=== PATIENT | male | born 1990 | race Caucasian/White ===

== ENCOUNTER 2020-11-24 17:02 | Observation (INO) | payer SELFPAY ==
[~2020-11-24] VITALS: Ht 182.9 cm; Wt 81.8 kg
[2020-11-24 17:26] VITALS: Ht 182.9 cm; Wt 81.8 kg
[2020-11-24 17:26] LABS: BASOPHILS 0.3 % (0-2); EOSINOPHILS 1.3 % (0-7); HEMATOCRIT 41.2 % (42.0-54.0); HEMOGLOBIN 14.2 g/dL (13.5-17.5); IMMATURE GRANULOCYTES 0.3 % (0-5); LYMPHOCYTE ABS# 2.25 10x3/uL (1.32-3.57); LYMPHOCYTES 21.6 % (15-50); MCH 31.7 pg (26.0-34.0); MCHC 34.5 g/dL (31.0-37.0); MEAN PLATELET VOLUME 10.1 fL (7.4-10.4); MONOCYTES 4.2 % (2-11); NEUTROPHIL ABS# 7.52 10x3/uL (1.78-5.38); NEUTROPHILS 72.3 % (40-80); PLATELET COUNT 232 10x3/uL (130-400); RBC 4.48 10x6/uL (4.20-6.10); WBC 10.4 10x3/uL (4.8-10.8)
--- NOTE | 2020-11-24 17:32 | NUR ---
AWAITING NARCAN DRIP FROM PHARMACY. PATIENT RESPONDING TO NARCAN IVP, NOW AROUSES TO VERBAL STIMULUS, PUPIL SIZE FROM 1MM TO 2MM, SPEECH LESS SLUGGISH.
[2020-11-24 17:33] LABS: CALC OSMOLALITY 273 mosm/kg (275-300); CALCIUM 8.1 mg/dL (8.5-10.1); CARBON DIOXIDE 26.4 mmol/L (21.0-32.0); CHLORIDE - SERUM 101 mmol/L (98-107); CREATININE - SERUM 1.1 mg/dL (0.6-1.3); GLUCOSE 150 mg/dL (74-106); POTASSIUM - SERUM 3.3 mmol/L (3.5-5.1); SODIUM 136 mmol/L (136-145); UREA NITROGEN 9 mg/dL (7-18); eGFR NON AFRICAN AMERICAN 84 mL/min (90-120)
[2020-11-24 17:39] LABS: ALBUMIN 4.6 g/dL (3.4-5.0); ALKALINE PHOSPHATASE 68 U/L (30-120); ALT (SGPT) 29 U/L (10-68); BILIRUBIN - TOTAL 0.58 mg/dL (0.2-1.3); MAGNESIUM - SERUM 1.9 mg/dL (1.8-2.4); PROTEIN - SERUM 7.4 g/dL (6.4-8.2)
--- NOTE | 2020-11-24 17:52 | NUR ---
SPOKE TO MANE PUENTE, MOTHER, WITH PATIENT PERMISSION. STATES THAT THE PATIENT HAS A HEART MURMUR DX WHEN HE WAS 6 YEARS OLD, HAS ANXIETY WHICH HE IS TRYING TO GET HIS MEDICAL MARIJUANA CARD FOR, VAPES DAILY, REPORTS "HE DOES NOT DO ANY THC BUT HE SOMETIMES CBD 300MG FDA APPROVED GUMMIES". MOTHER REPORTS THAT PATIENT DRINKS. INITIALLY MOTHER ALSO STATED THAT PATIENT WAS DISABLED AND SHE IS HIS LEGAL [employer] PROGRAM[employer]. WHEN PAPERS AND DX REQUESTED, SHE STATES THAT THE DOCTOR DID NOT GIVE A NAME FOR A DX BUT SAID "HE LEARNS BETTER VISUAL THAN VERBAL" AND WAS UNABLE TO PROVIDE PAPERWORK. ALSO STATES "OH I CAN TELL YOU RIGHT NOW HE IS NOT SUICIDAL AT ALL". CELL # [phone].
[2020-11-24 17:57] VITALS: BP 134/73
--- NOTE | 2020-11-24 18:04 | NUR ---
URINE SAMPLE COLLECTED AND SENT TO PHARMACY.
[2020-11-24 18:16] LABS: BILIRUBIN NEGATIVE (NEGATIVE); KETONE NEGATIVE (NEGATIVE); NITRITE NEGATIVE (NEGATIVE); UDS - AMPHET NEGATIVE QUAL (NEGATIVE); UDS - BARB NEGATIVE QUAL (NEGATIVE); UDS - BENZO NEGATIVE QUAL (NEGATIVE); UDS - COCAINE NEGATIVE QUAL (NEGATIVE); UDS - OPIATE NEGATIVE QUAL (NEGATIVE); UDS - PCP NEGATIVE QUAL (NEGATIVE); UDS - THC POSITIVE QUAL (NEGATIVE); UROBILINOGEN 4 mg/dL (< 2)
--- NOTE | 2020-11-24 19:15 | NUR ---
ASSUMED CARE OF PATIENT, RESTING ON STRETCHER QUIETLY AT THIS TIME, EASY TO AROUSE TO TOUCH. VITAL SIGNS STABLE, MINOR DRAINING CLEAR YELLOW URINE, NACAN DRIP INFUSING PER ORDER, NS INFUSING PER ORDER.
[2020-11-24 19:30] VITALS: BP 127/66
--- NOTE | 2020-11-24 20:41 | NUR ---
PATIENT IS ALERT, SITTING UP, IS RECALLING WAHT HAPPENED AND HOW HE GOT HERE, STATES HE IS HUNGRY. CALLED PROVIDER, RORY OSMAN, STATES HE CAN BE STARTED ON CLEAR LIQUIDS TO LEAVE NARCAN DRIP INFUSION ORDER IS FOR NOW.
[2020-11-24 20:43] VITALS: BP 126/68
[2020-11-24 22:00] VITALS: BP 118/66
[2020-11-24 23:17] LABS: APTT 29.6 SECONDS (22.8-39.4); INR 1.29 (0.85-1.17); PROTIME 14.9 SECONDS (11.6-15.0)
[2020-11-24 23:31] LABS: CKMB 0.4 U/L (0.0-3.6); CREATINE KINASE 105 UL (21-232); TROPONIN-I < 0.017 ng/mL (0.000-0.060)
--- NOTE | 2020-11-25 00:37 | NUR ---
Moved patient to E1, call light within reach, answering questions appropriately, A+O x3, talking to family on the phone.
[2020-11-25 00:38] VITALS: BP 130/67
[2020-11-25 03:01] VITALS: BP 111/55
[2020-11-25 03:33] LABS: BASOPHILS 0.1 % (0-2); EOSINOPHILS 0.4 % (0-7); HEMATOCRIT 38.7 % (42.0-54.0); HEMOGLOBIN 13.2 g/dL (13.5-17.5); IMMATURE GRANULOCYTES 0.1 % (0-5); LYMPHOCYTE ABS# 1.69 10x3/uL (1.32-3.57); LYMPHOCYTES 24.7 % (15-50); MCH 31.4 pg (26.0-34.0); MCHC 34.1 g/dL (31.0-37.0); MCV 91.9 fL (80.0-100.0); MEAN PLATELET VOLUME 9.5 fL (7.4-10.4); NEUTROPHIL ABS# 4.62 10x3/uL (1.78-5.38); NEUTROPHILS 67.7 % (40-80); RBC 4.21 10x6/uL (4.20-6.10)
[2020-11-25 03:51] LABS: PLATELET COUNT 176 10x3/uL (130-400); WBC 6.8 10x3/uL (4.8-10.8)
[2020-11-25 04:00] LABS: ALBUMIN 3.8 g/dL (3.4-5.0); ALKALINE PHOSPHATASE 54 U/L (30-120); ALT (SGPT) 27 U/L (10-68); BILIRUBIN - TOTAL 0.44 mg/dL (0.2-1.3); CALC OSMOLALITY 277 mosm/kg (275-300); CALCIUM 8.4 mg/dL (8.5-10.1); CARBON DIOXIDE 25.3 mmol/L (21.0-32.0); CHLORIDE - SERUM 107 mmol/L (98-107); CREATININE - SERUM 0.7 mg/dL (0.6-1.3); GLUCOSE 127 mg/dL (74-106); MAGNESIUM - SERUM 2.2 mg/dL (1.8-2.4); POTASSIUM - SERUM 3.7 mmol/L (3.5-5.1); PROTEIN - SERUM 6.4 g/dL (6.4-8.2); SODIUM 139 mmol/L (136-145); UREA NITROGEN 7 mg/dL (7-18); eGFR NON AFRICAN AMERICAN > 90 mL/min (90-120)
[2020-11-25 05:17] VITALS: BP 105/62
--- NOTE | 2020-11-25 05:21 | NUR ---
NS INFUSION COMPLETED AT 0400.
--- NOTE | 2020-11-25 05:22 | NUR ---
REPORT GIVEN TO HECTOR BARNES.
[2020-11-25 07:52] VITALS: BP 106/59
--- NOTE | 2020-11-25 08:35 | NUR ---
PT LYING IN BED, SLEEPY BUT EASILY AROUSABLE. NO DISTRESS NOTED AT THIS TIME. PT DENIES NEEDS AT THIS TIME.
--- NOTE | 2020-11-25 08:37 | NUR ---
PT LYING IN BED, SLEEPY BUT EASILY AROUSABLE. NO DISTRESS NOTED AT THIS TIME. PT DENIES NEEDS AT THIS TIME.
== END 2020-11-25 12:30 | disposition home or self-care (01) ==
LOC: D.ER 17:02 → D.EDHOLD 18:36 → OBSVTIME 18:36 → D.EDHOLD 11-25 01:59
PROVIDERS: Family Medicine; ADMIT Family Medicine; ATTEND Family Medicine
DX: T65.91XA Toxic effect of unspecified substance, accidental (unintentional), initial encounter (principal); E87.6 Hypokalemia